=== PATIENT | female | born 1965 | race African-American/Black ===

== ENCOUNTER 2023-02-19 12:03 | Outpatient (CLI) | payer OTHER ==
[2023-02-19 13:53] LABS: Hematocrit 44.2 % (34.9-44.5); Mean Corpuscular HGB CONC 33.9 g/dL (32.0-36.0); Mean Corpuscular Hemoglobin 30.2 pg (27.0-33.0); Mean Corpuscular Volume 89.1 fl (81.6-98.3); Mean Platelet Volume 11.7 fl (7.4-10.4); Platelet Count 255 10x3/uL (150-450); Red Blood Cell (RBC) Count 4.96 10x6/uL (3.90-5.03); White Blood Cell (WBC) Count 11.6 10x3/uL (3.5-10.5)
[2023-02-19 14:13] LABS: Anion Gap 15 mmol/L (10-20); BUN (Urea Nitrogen) 11 mg/dL (9.8-20.1); Calc. Creatinine Clearance 0 mL/min (70-130); Calcium 9.8 mg/dL (7.8-10.44); Carbon Dioxide 24 mmol/L (22-29); Chloride 108 mmol/L (98-107); Estimated GFR 102; Glucose 109 mg/dL (70-105); Potassium 3.9 mmol/L (3.5-5.1); Prothrombin Time 11.1 sec (9.5-12.1); Sodium 143 mmol/L (136-145)
== END 2023-02-19 12:04 | disposition home or self-care (01) ==
LOC: LABBT 12:03
PROVIDERS: ATTEND Orthopaedic Surgery
DX: Z01.818 Encounter for other preprocedural examination (principal); M16.12 Unilateral primary osteoarthritis, left hip
CPT/HCPCS: 80048; 85027; 85610; 87081; 93005; 93010

== ENCOUNTER 2023-03-02 06:23 | Inpatient (IN) | payer OTHER ==
[2023-02-19 12:30] VITALS: BMI 31.9
[2023-03-02] MEDS ORDERED: Fentanyl 250 MCG/5 ML VIAL ONE (06:28)
[2023-03-02] MEDS ORDERED: Propofol 1,000 MG/100 ML VIAL IV ONE (06:28)
[2023-03-02] MEDS ORDERED: Midazolam HCl 2 mg/2 ml Vial ONE (06:28)
[2023-03-02] MEDS ORDERED: Vancomycin 1 GM VIAL ONE (06:48)
[2023-03-02] MEDS ORDERED: Ondansetron PF 4 MG/2 ML Vial IVP PRN (07:28)
[2023-03-02] MEDS ORDERED: Morphine 4 MG/ML VIAL SLOW IVP PRN (07:28)
[2023-03-02] MEDS ORDERED: Clindamycin/D5W 900 mg/50 ml Premix Bag ONE (07:28)
[2023-03-02] MEDS ORDERED: Dexamethasone 4 mg/ml Vial ONE (07:30)
[2023-03-02] MEDS ORDERED: Dexmedetomidine 200 MCG/2 ML VIAL ONE (07:30)
[2023-03-02] MEDS ORDERED: Tranexamic Acid 1,000 MG/10 ML VIAL ONE ×2 (08:01→09:40)
[2023-03-02] MEDS ORDERED: Ropivacaine 0.5% HCl/PF (150 MG/30 ML VIAL) ONE ×2 (08:10→08:25)
[2023-03-02] MEDS ORDERED: Ropivacaine 2% HCl/PF (20 MG/10 ML VIAL) ONE (08:10)
[2023-03-02] MEDS ORDERED: Rocuronium Bromide 10 MG/ML (10ML VIAL) ONE (08:15)
[2023-03-02] MEDS ORDERED: Ondansetron PF 4 MG/2 ML Vial ONE (08:15)
[2023-03-02] MEDS ORDERED: Dexamethasone 20 MG/5 ML VIAL ONE (08:15)
[2023-03-02] MEDS ORDERED: PROPOFOL 200 MG/20 ML VIAL ONE (08:15)
[2023-03-02] MEDS ORDERED: SUGAMMADEX SODIUM 200 MG/2 ML VIAL ONE (08:17)
[2023-03-02] MEDS ORDERED: hydrALAZINE 20 MG/ML VIAL ONE (10:33)
[2023-03-02] MEDS ORDERED: HYDROmorphone 0.5 MG/0.5 ML SYRINGE ONE ×3 (10:46→12:27)
[2023-03-02] MEDS ORDERED: Ketorolac Tromethamine 30 MG/ML VIAL ONE (11:03)
[2023-03-02] MEDS: Ketorolac Tromethamine 30 MG/ML VIAL IVP SCH ×2 (11:05→17:46)
[2023-03-02] MEDS ORDERED: Clindamycin/D5W 900 MG in Premix 1 BAG IVPB SCH (14:00)
[2023-03-02] MEDS: HYDROcodone/Acetaminophen 10/325 mg Tablet PO PRN (17:49)
[2023-03-02] MEDS: Aspirin 81 mg Enteric Coated Tablet PO SCH ×2 (18:50→21:46)
[2023-03-02] MEDS: Morphine 2 MG/ML VIAL SLOW IVP PRN (21:46)
[2023-03-02] MEDS: Clindamycin/D5W 900 MG in Premix 1 BAG IVPB SCH (21:46)
[2023-03-03] MEDS: HYDROcodone/Acetaminophen 10/325 mg Tablet PO PRN ×6 (00:52→21:40)
[2023-03-03] MEDS: Ketorolac Tromethamine 30 MG/ML VIAL IVP SCH ×2 (00:54→05:33)
[2023-03-03] MEDS: Clindamycin/D5W 900 MG in Premix 1 BAG IVPB SCH (05:33)
[2023-03-03] MEDS: Aspirin 81 mg Enteric Coated Tablet PO SCH ×2 (09:06→21:41)
[2023-03-03] MEDS: Losartan 25 MG TAB PO SCH (09:06)
[2023-03-03] MEDS: Hydrochlorothiazide 25 MG TAB PO SCH (09:07)
[2023-03-03] MEDS: Morphine 2 MG/ML VIAL SLOW IVP PRN (12:11)
[2023-03-04] MEDS: HYDROcodone/Acetaminophen 10/325 mg Tablet PO PRN ×2 (03:40→08:32)
[2023-03-04 04:26] VITALS: TEMP 97.7
[2023-03-04] MEDS: Aspirin 81 mg Enteric Coated Tablet PO SCH (08:31)
[2023-03-04] MEDS: Losartan 25 MG TAB PO SCH (08:38)
[2023-03-04] MEDS: Hydrochlorothiazide 25 MG TAB PO SCH (08:38)
[2023-03-04 12:07] VITALS: BP 123/70
== END 2023-03-04 12:27 | disposition home or self-care (01) | DRG 470 ==
LOC: SDC 06:23 → SURG A 15:14 → OBSVTOIN 03-04 10:18
PROVIDERS: ADMIT Orthopaedic Surgery; ATTEND Orthopaedic Surgery
PROC: 0SRB0JZ Replacement of Left Hip Joint with Synthetic Substitute, Open Approach (ICD-10-PCS; principal; 2023-03-02)
DX: M16.12 Unilateral primary osteoarthritis, left hip (principal); F17.210 Nicotine dependence, cigarettes, uncomplicated; E66.9 Obesity, unspecified; Z88.0 Allergy status to penicillin; Z88.8 Allergy status to other drugs, medicaments and biological substances; Z79.899 Other long term (current) drug therapy; Z68.31 Body mass index [BMI] 31.0-31.9, adult
CPT/HCPCS: 64450; C1776; J0360; J1100; J1170; J1885; J2250; J2270; J2272; J2405; J2704; J2795; J3010; J3370; J3490